=== PATIENT | female | born 1985 | race Caucasian/White ===

== ENCOUNTER → 2016-11-03 | Day surgery (SDC) | payer OTHER ==
[~2016-11-03] MED LIST: 0.9% Sodium Chloride 1,000 ML IV ONE; 0.9% Sodium Chloride 1,000 ML IV PRN; CITA20TA PO; GABA-502 PO; HYDR-4003 PO; LEVO100T6 PO; PANT40TA2 PO; SUCR1TAB30 PO; Sodium Chloride LOK Flush 10 mL Syringe IV PRN; fentaNYL-PF 50 mCg/mL 2 mL Inj IVPUSH PRN; fentaNYL-PF 50 mCg/mL 2 mL Inj ONE
[2016-11-03 14:42] VITALS: BP 108/60; PULSE 66; RESP 12; O2SAT 99
[2016-11-03 16:06] VITALS: BP 116/71; PULSE 66; RESP 17; O2SAT 94
[2016-11-03 16:16] VITALS: BP 116/71; PULSE 77; RESP 16; O2SAT 96
--- NOTE | 2016-11-03 19:33 | ENDO ---
[address] [address] ENDOSCOPY PROCEDURE PATIENT: YOHAN BAILEY : 1985 MR#: [id number] ADMIT: 11/03/2016 JOB ID: [id number] DATE: 11/03/2016 PROCEDURE: Esophagogastroduodenoscopy (EGD). INDICATION: Epigastric pain. Patient's ASA classification is two. Mallampati score is two. MEDICATIONS: Versed 6 mg, fentanyl 125 mcg. INSTRUMENT USED: GIF H 180 J. PROCEDURE DETAILS: After informed consent was obtained, the patient was brought into the GI suite, where she was placed on oxygen via nasal cannula and monitored with continuous pulse oximeter, telemetry, and blood pressure monitoring. A time-out was performed, then she was placed in the left lateral decubitus position and medications were administered for sedation. A bite block was placed. The standard EGD scope was inserted through the bite block and advanced under direct visualization to the second portion of the duodenum without difficulty. FINDINGS: 1. Normal appearing duodenal bulb, first and second portion. Multiple random biopsies were obtained. 2. Normal appearing pylorus. In the antrum there was a clean based ulcer that measured approximately 4 mm. The surrounding mucosa was erythematous and edematous. Biopsies were obtained from the margins of the ulcer. 3. The mucosa otherwise in the antrum and body of the stomach appeared unremarkable. Multiple random biopsies were obtained to evaluate for H. pylori. 4. Retroflexed views in the gastric body revealed a normal-appearing cardia and fundus. 5. The top of the gastric folds was at approximately 40 cm. Extending up to 37 cm were two tongues of salmon-colored mucosa suggestive of Colbert's. Multiple random biopsies were obtained. Proximal to 37 cm the esophagus appeared normal. IMPRESSION: 1. Antral ulcer. 2. 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 RECOMMENDATIONS: 1. Continue PPI b.i.d. 2. Repeat EGD in eight weeks. 3. Follow up in GI Clinic in four weeks. COMPLICATIONS: None. ESTIMATED BLOOD LOSS: Less than 5 mL.
--- NOTE | 2016-11-08 16:50 | PATH ---
SURGICAL PATHOLOGY Attending Physician:Lisa Barker CASE STATUS: Signed Out PATIENT NAME: YOHAN BAILEY PID: [id number] : 1985 DATE COLLECTED:11/03/2016 00:00 SPECIMEN: 1: Duodenum, Biopsy 2: Gastric, Biopsy 3: Gastric, Biopsy 4: Esophagus, Biopsy CLINICAL HISTORY: 1). DUODENAL BIOPSY 2). GASTRIC BIOPSY 3). GASTRIC ULCER BIOPSY 4). DISTAL ESOPHAGUS BIOPSY FINAL DIAGNOSIS: 1. Duodenum, Biopsy: Duodenal mucosa with no diagnostic abnormality. Negative for active inflammation, features of sprue, dysplasia or malignancy. 2. Stomach, Biopsy: Gastric body mucosa with mild reactive changes consistent with adjacent erosion. No evidence of Helicobacter on H&E stain. Negative for intestinal metaplasia, dysplasia or malignancy. 3. Gastric Ulcer, Biopsy: Focal erosive gastritis. No evidence of Helicobacter organisms on H&E stain. Negative for intestinal metaplasia, dysplasia or malignancy. 4. Distal Esophagus, Biopsy: Squamocolumnar junctional mucosa with chronic inflammation. Negative for intestinal metaplasia, dysplasia or malignancy. ICD10: K29.7 GROSS DESCRIPTION: The specimen is received in four formalin filled containers labeled with the patient's name. 1). The specimen is labeled "duodenal" and consists of 3 portions of tissue which aggregate to 0.3 x 0.2 x 0.2 CM. The specimen is entirely submitted in cassette 1A. 2). The specimen is labeled "gastric" and consists of 3 portions of tissue which aggregate to 0.2 x 0.2 x 0.2 CM. The specimen is entirely submitted in cassette 2A. 3). The specimen is labeled "gastric ulcer" and consists of a 0.2 x 0.2 x 0.1 CM portion of tissue which is entirely submitted in cassette 3A. 4). The specimen is labeled "distal esophagus" and consists of 3 portions of tissue which aggregate to 0.3 x 0.3 x 0.3 CM. The specimen is entirely submitted in cassette 4A. 11/04/2016ID ICD-9 CODES: CPT CODES: 1: 36650 2: 27551 3: 47305 4: 79722 Electronically Signed Out Pool Fajardo MD, Ph.D. [facility] [address] [place] [address] Technical component performed at [facility], [address], [place], [address]
== END | disposition home or self-care (01) ==
LOC: END 00:45
PROVIDERS: ATTEND Internal Medicine Gastroenterology
DX: K29.00 Acute gastritis without bleeding (principal); G43.909 Migraine, unspecified, not intractable, without status migrainosus; E07.9 Disorder of thyroid, unspecified; F17.210 Nicotine dependence, cigarettes, uncomplicated; Z98.84 Bariatric surgery status
CPT/HCPCS: 43239; J2250; J3010; J7030